=== PATIENT | male | born 1970 | race Caucasian/White ===

== ENCOUNTER → 2020-04-01 | Outpatient (CLI) | payer BC ==
[~2020-04-01] MED LIST: FLONASE NASAL S16 GM NS; ZYRTEC10 MG PO
== END ==
LOC: COL.LAB 08:42
DX: Z20.828 Contact with and (suspected) exposure to other viral communicable diseases (principal)

== ENCOUNTER → 2020-10-16 | Outpatient (CLI) | payer BC | LOC: COL.RAD 13:33 | DX: J32.9 Chronic sinusitis, unspecified (principal) ==

== ENCOUNTER → 2020-11-06 | Outpatient (CLI) | payer BC | LOC: COL.CARD 09:13 | DX: R42 Dizziness and giddiness (principal) ==

== ENCOUNTER 2021-11-10 07:57 | Day surgery (SDC) | payer BC ==
[~2021-11-10] VITALS: Ht 189.2 cm; Wt 112.3 kg
[2021-11-10] MEDS ORDERED: COZAAR100 MG PO (08:11)
[2021-11-10] MEDS ORDERED: NORVASC 5MG5 MG/TAB PO (08:11)
[2021-11-10] MEDS ORDERED: ALEVE 220MG220 MG PO (08:11)
[2021-11-10 08:12] VITALS: BP 114/83; PULSE 63; TEMP 97.3
[2021-11-10 09:35] VITALS: BP 107/90; PULSE 68; TEMP 97.1
--- NOTE | 2021-11-10 09:35 | NUR ---
The patient arrived back to [facility] from the endoscopy suite at this time. The patient appears alert and oriented and ambulated back to the recliner in his room with the stand by assistance of two nurses. Post procedure vital signs were started at this time. The patient agrees to try some coffee and a muffin at this time. Will conitnue to monitor the patient.
[2021-11-10 09:50] VITALS: BP 111/81; PULSE 72
--- NOTE | 2021-11-10 09:50 | NUR ---
Dr. Cuellar is at the patient's bedside discussing the results of the procedure with him.
[2021-11-10 10:05] VITALS: BP 110/82; PULSE 70
--- NOTE | 2021-11-10 10:05 | NUR ---
The patient appeared to tolerate at the food and drink well and voices a desire to be discharged home. Discharge instructions were reviewed with the patient at this time. He verbalized understanding and has no quesitons for the nurse at this time. The patient's IV to his right hand was removed a pressure dressing was applied to the site. The patient is dressed and ready to be escorted out.
--- NOTE | 2021-11-10 10:10 | NUR ---
The patient was escorted out via wheelchair to a private vehicle by SCOTTIE Thomas. The patient's belongings and discharge paperwork were sent with him. The patient's is present to drive him home.
== END 2021-11-10 10:10 | disposition home or self-care (01) ==
LOC: SDCO 07:57
DX: Z12.11 Encounter for screening for malignant neoplasm of colon (principal); D12.4 Benign neoplasm of descending colon; I10 Essential (primary) hypertension; I34.0 Nonrheumatic mitral (valve) insufficiency; G62.9 Polyneuropathy, unspecified; K57.30 Diverticulosis of large intestine without perforation or abscess without bleeding; Z79.899 Other long term (current) drug therapy
CPT/HCPCS: J2704; J7030